=== PATIENT | male | born 1980 | race Caucasian/White ===

== ENCOUNTER 2019-11-07 13:01 | Inpatient (IN) | payer BC, OTHER ==
[2019-11-07 13:05] VITALS: BMI 28.7
--- NOTE | 2019-11-07 13:21 | PDOC ---
History of Present Illness - General Chief Complaint: Pain Stated Complaint: RIGHT SIDE ABDOMINAL PAIN Time Seen by Provider: 11/07/19 13:21 History Source: Patient Exam Limitations: No Limitations - History of Present Illness Initial Comments: 11/07/19 13:21 Jason Hong is an otherwise healthy 38M presenting with RLQ pain. Patient has no significant PMH or PSH. Reports last night drank 4x rum and coke, ate some rice and beef with his family who are asymptomatic, went to bed at 1AM in NAD. No recent trauma. Woke up several times throughout the night with acute onset 10/10 RLQ pain, nauseated without vomiting, no radiating pain, pain worse with walking and extending right leg. Never had pain like this before. No fevers, no urinary symptoms, no chest pain, no PAVON, no dizziness, no SOB. Last BM today and normal. Reported allergy to Bactrim with unknown reaction. Denies drug/tobacco use. 11/07/19 16:58 Labs notable for: - WBC 11.7, WNL - CMP WNL - lipase WNL - CP WNL - UA +ketones otherwise no UTI CTAP done, pending read. Past History - Medical History Allergies/Adverse Reactions: Allergies Allergy/AdvReac Type Severity Reaction Status Date / Time sulfamethoxazole Allergy Intermediate Rash Verified 11/07/19 14:11 [From Bactrim] trimethoprim [From Bactrim] Allergy Intermediate Rash Verified 11/07/19 14:11 Home Medications: Ambulatory Orders No Home Medications 0 dose .ROUTE UTDICT 08/01/13 - Immunization History Td Vaccination: Yes - Psycho-Social/Smoking History Smoking Status: No Smoking History: Never smoked Have you smoked in the past 12 months: No Number of Cigarettes Smoked Daily: 0 Information on smoking cessation initiated: No - Substance Abuse Hx (Audit-C & DAST Scrn) How often the patient has a drink containing alcohol: Monthly or less Score: In Men: 4 or > Positive; In Women: 3 or > Positive: 1 Screen Result (Pos requires Nsg. Audit-10AR): Negative In the last yr the pt used illegal drug/Rx for NonMed reason: No Score: Yes response is considered Positive: 0 Screen Result (Positive result requires Nsg. DAST-10): Negative Review of Systems - Review of Systems Able to Perform ROS?: Yes Constitutional: No: Symptoms Reported HEENTM: No: Symptoms Reported Respiratory: No: Symptoms reported Cardiac (ROS): No: Symptoms Reported ABD/GI: Yes: Nausea, Abdominal cramping. No: Constipated, Diarrhea, Poor Appetite, Poor Fluid Intake, Vomiting : No: Symptoms Reported Musculoskeletal: No: Symptoms Reported Integumentary: No: Symptoms Reported Neurological: No: Symptoms reported Endocrine: No: Symptoms Reported Hematologic/Lymphatic: No: Symptoms Reported All Other Systems: Reviewed and Negative *Physical Exam - Vital Signs Last Vital Signs Temp Pulse Resp BP Pulse Ox 98.2 F 82 18 124/67 99 11/07/19 13:03 11/07/19 13:03 11/07/19 13:03 11/07/19 13:03 11/07/19 13:03 - Physical Exam General Appearance: Yes: Nourished, Appropriately Dressed, Other (resting supine in bed in NAD). No: Apparent Distress HEENT: positive: EOMI, ADRIANO, Normal Voice, Symmetrical, Pharynx Normal. negative: Scleral Icterus (R), Scleral Icterus (L), Pharyngeal Erythema, T onsillar Exudate, Tonsillar Erythema Neck: positive: Trachea midline, Normal Thyroid, Supple. negative: Tender, Rigid, Lymphadenopathy (R), Lymphadenopathy (L), Tender lateral, Tender midline Respiratory/Chest: positive: Lungs Clear, Normal Breath Sounds. negative: Chest Tender, Respiratory Distress, Accessory Muscle Use, Crackles, Rales, Rhonchi, Stridor, Wheezing Cardiovascular: positive: Regular Rhythm, Regular Rate. negative: Murmur Gastrointestinal/Abdominal: positive: Normal Bowel Sounds, Tender (RLQ, negative Guerra's, no flank pain, +Psoas sign, -Rosvings sign), Flat, Soft. negative: Organomegaly, Guarding, Rebound Musculoskeletal: positive: Normal Inspection. negative: CVA Tenderness, Decreased Range of Motion, Vertebral Tenderness Extremity: positive: Normal Capillary Refill, Normal Inspection, Normal Range of Motion, Pelvis Stable. negative: Tender, Pedal Edema, Swelling, Calf Tenderness Integumentary: positive: Normal Color, Dry, Warm Neurologic: positive: Fully Oriented, Alert, Normal Mood/Affect, Normal Response ED Treatment Course - LABORATORY CBC & Chemistry Diagram: 11/07/19 01:47 11/07/19 01:47 Medical Decision Making - Medical Decision Making 11/07/19 13:21 Patient presents with acute onset RLQ pain without vomiting or fevers, VSS, in NAD. Presentation consistent with pancreatitis vs. colitis, last BM this AM and normal, no other PSH. Less likely urinary or GB pathology. Getting pre-op labs, board eval infection and electrolyte abnormalities, ECG. CTAP with IV contrast for eval appendicitis after labs return. [facility] for pain control. ECG NSR with HR 74, QTc 432, no MARLEEN/D or TWI. Labs notable for: - WBC 11.7, afebrile - CMP WNL - UA trace ketones but no evidence of UTI 11/07/19 17:19 CTAP: Dilatation of the appendix with moderate adjacent fat stranding and appendicolith, consistent with appendicitis. No evidence of associated abscess or perforation. Moderate prostatomegaly. Consulting surgery and will admit for acute appendicitis. 11/07/19 18:16 Patient now reports feeling warm with 10/10 intermittent pain, now 7/10 with palpation. Giving morphine for pain and getting covid-[address] Anderson office, pending callback. 11/07/19 18:44 Dr. Anderson recommends OR now for appendectomy tonight, requests one dose of cefoxitin prior to OR. Getting rapid covid-19 testing. 11/07/19 18:[address] Randy East for admission. 11/07/19 19:05 Dr. East unavailable for admission, requests [facility] admission. 11/07/19 19:57 Discussed case with night admitting team, will admit to Med/Surg for further OR evaluation tonight. Discharge - Discharge Information Problems reviewed: Yes Clinical Impression/Diagnosis: Abdominal pain Qualifiers: Abdominal location: right lower quadrant Qualified Code(s): R10.31 - Right lower quadrant pain Acute appendicitis Qualifiers: Acute appendicitis type: unspecified acute appendicitis type Qualified Code(s): K35.80 - Unspecified acute appendicitis Condition: Stable - Admission Yes - Follow up/Referral Referrals: Randy East MD [Primary Care Provider] - - Patient Discharge Instructions - Post Discharge Activity
[2019-11-07 13:58] LABS: BASO % 0.4 % (0-2.0); EOS % 0.3 % (0-4.5); HEMATOCRIT 42.9 % (35.4-49); HEMOGLOBIN 14.7 GM/dL (11.7-16.9); LYMPH % 6.7 % (8-40); MCH 29.5 pg (25.7-33.7); MCHC 34.2 g/dl (32.0-35.9); MEAN CELL VOLUME 86.2 fl (80-96); MEAN PLT VOLUME 8.3 fl (7.5-11.1); MONO % 5.8 % (3.8-10.2); NEUT % 86.8 % (42.8-82.8); PLATELET COUNT 210 K/MM3 (134-434); RBC 4.97 M/mm3 (4.00-5.60); RDW 12.8 % (11.9-15.9); WHITE BLOOD COUNT 11.7 K/mm3 (4.0-10.0)
[2019-11-07 14:05] LABS: PROTHROMBIN TIME (PATIENT) 11.8 SEC (9.7-13.0)
[2019-11-07 14:07] LABS: ACTIVATED PTT 31.1 SECONDS (25.2-36.5)
[2019-11-07 14:17] LABS: URINE APPEARANCE CLEAR; URINE BILIRUBIN NEGATIVE (NEGATIVE); URINE COLOR YELLOW; URINE GLUCOSE (UA) NEGATIVE (NEGATIVE); URINE KETONE TRACE (NEGATIVE); URINE LEUK ESTERASE NEGATIVE (NEGATIVE); URINE NITRITE NEGATIVE (NEGATIVE); URINE PROTEIN NEGATIVE (NEGATIVE); URINE UROBILINOGEN 0.2 mg/dL (0.2-1.0)
[2019-11-07] MEDS ORDERED: ACETAMINOPHEN 1000 MG/100 ML VIAL (NON FORMULARY) IVPB ONE ×2 (14:18→19:26)
[2019-11-07] MEDS ORDERED: ACETAMINOPHEN INJECTION 100 ML IVPB ONE ×2 (14:35→19:25)
[2019-11-07 14:38] LABS: ALK PHOS 81 U/L (45-117); ANION GAP 7 MMOL/L (8-16); BILIRUBIN,TOTAL 0.5 mg/dL (0.2-1); BLOOD UREA NITROGEN 20.4 mg/dL (7-18); CALCIUM 9.1 mg/dL (8.5-10.1); CHLORIDE 105 mmol/L (98-107); CO2 26 mmol/L (21-32); CREATININE 1.2 mg/dL (0.55-1.3); GLUCOSE,RANDOM 98 mg/dL (74-106); POTASSIUM 4.1 mmol/L (3.5-5.1); SGOT/AST 17 U/L (15-37); SGPT/ALT 27 U/L (13-61); SODIUM 138 mmol/L (136-145); TOT PROT 7.4 g/dl (6.4-8.2)
--- NOTE | 2019-11-07 18:10 | PDOC ---
Documentation entered by Millie Yates SCRIBE, acting as scribe for Adebayo Simmons MD. Adebayo Simmons MD: This documentation has been prepared by the Milan daniel Lincy, SCRIBE, under my direction and personally reviewed by me in its entirety. I confirm that the documentation accurately reflects all work, treatment, procedures, and medical decision making performed by me. Attending Attestation - Resident Resident Name: MelomartineSteve - ED Attending Attestation I have performed the following: I have examined & evaluated the patient, The case was reviewed & discussed with the resident, I agree w/resident's findings & plan, Exceptions are as noted - HPI HPI: 11/07/19 19:05 38 years old right lower common pain since 1 AM. Has not eaten since last night. Pain is moderate to severe persistent constant no exacerbating or alleviating factors. - Physicial Exam PE: 11/07/19 18:10 Vitals: Triage Vital signs reviewed General Appearance: No acute distress, well nourished well developed, Head: Atraumatic, Cardiac: Regular rate and rhythym, no murmurs, no rubs, no gallops, Lungs: Clear to auscultation bilateral, good air movement bilaterally, Abdomen: Soft, non distended, normal bowel sounds, right lower quadrant tenderness palpation no rebound no guarding Genitourinary:No testicular pain Extremities: Full range of motion to all extremities, no cyanosis, clubbing, or edema Skin: Warm and dry, no rashes or lesions, no rash, no petechiae Psych: Normal mood, normal affect 11/07/19 18:11 - Medical Decision Making 11/07/19 18:10 38 years old no significant past medical history presents with right lower quadrant pain CT evidence of acute appendicitis Surgery consulted We will start patient on antibiotics and admit for further management. Discharge - Discharge Information Problems reviewed: Yes Clinical Impression/Diagnosis: Abdominal pain Qualifiers: Abdominal location: right lower quadrant Qualified Code(s): R10.31 - Right lower quadrant pain Condition: Stable - Admission No - Follow up/Referral Referrals: Randy East MD [Primary Care Provider] - - Patient Discharge Instructions - Post Discharge Activity
[2019-11-07] MEDS ORDERED: morphine CARPU-JECT 4 MG/1 ML DISP.SYRIN IVPUSH ONE (18:16)
[2019-11-07] MEDS ORDERED: morphine SULFATE 4 MG/ML VIAL ONE (18:17)
[2019-11-07] MEDS ORDERED: CEFOXITIN SODIUM 1 GM in DEXTROSE 5%-WATER - 100 ML IVPB ONE (18:41)
--- NOTE | 2019-11-07 19:30 | PN ---
Teaching Attending Note Name of Resident: Daren Ballesteros ATTENDING PHYSICIAN STATEMENT I saw and evaluated the patient. I reviewed the resident's note and discussed the case with the resident. I agree with the resident's findings and plan as documented. 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 Reports last night drank 4x rum and coke, ate some rice and beef with his family who are asymptomatic, went to bed at 1 am in NAD. No recent trauma. Woke up several times throughout the night with acute onset 10/10 RLQ pain. There was associated nausea without vomiting. Pain is nonradiating pain, worse with walking and extending right leg. Never had pain li ke this before. Last bowel movement today and was normal. Patient denies chest pain, shortness of breath, headache, palpitations, dizziness, fever, chills, diarrhea, constipation, dysuria, frequency, urgency, melena, hematochezia or hematuria. Denies alcohol, tobacco or illicit drug use. No sick contacts or recent travels. Family history is unremarkable. OBJECTIVE: Alert Vital Signs Period Temp Pulse Resp BP Sys/Velasquez Pulse Ox Last 24 Hr 98.0 F-100.9 F 82-85 18-19 124-130/67-69 99-100 HEENT: No Jaundice, eye redness or discharge, PERRLA, EOMI. Normocephalic, atraumatic. External ears are normal and hearing is grossly intact. No nasal discharge. Neck: Supple, nontender. No palpable adenopathy or thyromegaly. No JVD Chest: Good effort. Clear to auscultation and percussion. Heart: Regular. No S3, rub or murmur Abdomen: Not distended, soft, RLQ tenderness and no HSM. No rebound or guarding. Normal bowel sounds. Ext: Peripheral pulses intact. No leg edema. Skin: Warm and dry. No petechiae, rash or ecchymosis. Neuro: Alert. Oriented x3. CN 2-12 grossly intact. Sensation grossly intact in all four extremities and DTR are symmetric. Psych: Appropriate mood and affect. Good insight. Home Medications Medication Instructions Recorded No Home Medications 0 dose .ROUTE UTDICT 08/01/13 Abnormal Lab Results 11/07/19 11/07/1911/06/20 01:47 01:47 13:41 WBC 11.7 H Absolute Neuts (auto) 10.2 H Neutrophils % 86.8 H Lymphocytes % 6.7 L Anion Gap 7 L BUN 20.4 H Urine Ketones Trace H Current Medications Generic Name Dose Route Start Last Admin Trade Name Freq PRN Reason Stop Dose Admin Enoxaparin Sodium 40 mg 11/08/19 10:00 Lovenox - SQ DAILY MERLE Fentanyl 50 mcg 11/07/19 21:52 Sublimaze Injection - IVPUSH [id number] PRN PAIN-PACU ORDER X 4 DOSES ONLY Cefoxitin Sodium 1 gm/ 100 mls @ 200 mls/hr 11/07/19 23:00 Dextrose IVPB 11/07/19 23:29 ONCE ONE Lactated Ringer's 1,000 ml in 1,000 mls @ 75 mls/hr 11/07/19 22:15 Lactated Ringers Solution IV ASDIR MERLE Ondansetron HCl 4 mg 11/07/19 21:52 Zofran Injection IVPUSH Q6H PRN NAUSEA AND/OR VOMITING Oxycodone/Acetaminophen 1 combo 11/07/19 21:50 Percocet 5/325 - PO ONCE PRN PAIN LEVEL 6-10 ASSESSMENT AND PLAN: 1. Appendicitis - CT scan of abdomen/pelvis with IV contrast shows evidence of appendicitis without abscess or perforation. ER staff prescribed Tylenol, IV Ce foxitin and IV Morphine for the patient. Patient being evaluated by Surgery. Will keep him NPO and treat with IV D5NS. EKG shows NSR at 74/minute and QTc 432 with no significant acute ischemic ST-T wave changes. Initial troponin is negative. Viral testing for COVID-19 ordered and patient placed on airborne, droplet and contact isolation. 2. DVT prophylaxis - Lovenox 40 mg SQ q 24 hours. 3. Advance directives - Full code
--- NOTE | 2019-11-07 19:58 | CONSULT ---
Consult Consult Specialty:: Surgery Reason for Consultation:: acute appendicitis - History of Present Illness Chief Complaint: RLQ abdominal pain - History Source History Provided By: Patient Limitations to Obtaining History: No Limitations - Alcohol/Substance Use Hx Alcohol Use: No - Smoking History Smoking history: Never smoked Have you smoked in the past 12 months: No Aproximately how many cigarettes per day: 0 Home Medications - Allergies Allergies/Adverse Reactions: Allergies Allergy/AdvReac Type Severity Reaction Status Date / Time sulfamethoxazole Allergy Intermediate Rash Verified 11/07/19 14:11 [From Bactrim] trimethoprim [From Bactrim] Allergy Intermediate Rash Verified 11/07/19 14:11 - Home Medications Home Medications: Ambulatory Orders No Home Medications 0 dose .ROUTE UTDICT 08/01/13 Review of Systems - Review of Systems Eyes: reports: No Symptoms HENT: reports: No Symptoms Neck: reports: No Symptoms Cardiovascular: reports: No Symptoms Respiratory: reports: No Symptoms Gastrointestinal: reports: Abdominal Pain, Nausea Genitourinary: reports: No Symptoms Integumentary: reports: No Symptoms Neurological: reports: No Symptoms Endocrine: reports: No Symptoms Psychiatric: reports: No Symptoms Pain Intensity: 10 Physical Exam Vital Signs: Vital Signs Temperature 100.9 F H 11/07/19 18:59 Pulse Rate 85 11/07/19 17:41 Respiratory Rate 19 11/07/19 17:41 Blood Pressure 130/68 11/07/19 17:41 O2 Sat by Pulse Oximetry (%) 100 11/07/19 17:41 Constitutional: Yes: Well Nourished, Anxious HENT: Yes: Normocephalic Neck: Yes: Supple Cardiovascular: Yes: Regular Rate and Rhythm Respiratory: Yes: CTA Bilaterally Gastrointestinal: Yes: Soft, Tenderness (RLQ) Labs: CBC, BMP 11/07/19 01:47 11/07/19 01:47 Imaging - Results Cat Scan: Report Reviewed (acute appendicitis with appendicolith), Image Reviewed Problem List - Problems (1) Acute appendicitis Assessment/Plan: NPO, IVF, IV Abx Laparoscopic appendectomy, possible open Code(s): K35.80 - UNSPECIFIED ACUTE APPENDICITIS
[2019-11-07] MEDS ORDERED: fentaNYL CITRATE 250 MCG/5 ML VIAL ONE (20:25)
[2019-11-07] MEDS ORDERED: MIDAZOLAM HCL 2 MG/2 ML SINGLE DOSE VIAL ONE ×2 (20:25)
[2019-11-07] MEDS ORDERED: PROPOFOL 20 ML ONE (20:25)
[2019-11-07] MEDS ORDERED: SUCCINYLCHOLINE CHLORIDE 200 MG/10 ML SYRINGE ONE (20:25)
[2019-11-07] MEDS ORDERED: ROCURONIUM BROMIDE 50 MG/5 ML SYRINGE ONE (20:25)
[2019-11-07] MEDS ORDERED: GLYCOPYRROLATE 0.2 MG/1 ML VIAL ONE (20:57)
[2019-11-07] MEDS ORDERED: NEOSTIGMINE METHYLSULFATE 0.5 MG/ML - 10 ML MDV ONE (20:57)
[2019-11-07] MEDS ORDERED: DEXAMETHASONE SOD PHOSPHATE 4 MG/1 ML VIAL ONE (20:57)
[2019-11-07] MEDS ORDERED: KETOROLAC TROMETHAMINE 30 MG/1 ML VIAL ONE (21:20)
[2019-11-07] MEDS ORDERED: BUPIVACAINE HCL/PF 0.5% (5MG/ML) 10 ML VIAL IJ ONE (21:39)
--- NOTE | 2019-11-07 21:42 | HP ---
CHIEF COMPLAINT: RLQ pain PCP: Randy son HISTORY OF PRESENT ILLNESS: 38 M with no significant PMH, presents with 1 D of RLQ pain. Pain began around 3.00am, woke him up from sleep. Sudden onset, sharp, non radiating, episodic, 10/10 at worse, worse with walking/movement of legs, better with pain meds recei sheldon in ER and with laying still. Associated with few episodes of nausea vomiting NBNB. No prior episodes, No hx of appendicitis. Family Hx significant for mother DM and HTN. Denies any fever, chills, chest pain, SOB, diarrhea, constipation, dysuria, hematuria. In ER patient recieved: Tylenol, IV Cefoxitin and IV Morphine ER course was notable for: (1)CTAP: Dilatation of the appendix with moderate adjacent fat stranding and appendicolith, consistent with appendicitis. No evidence of associated abscess or perforation. Moderate prostatomegaly (2)WBC 11.7, Tmax 100.9 (3) Laparoscopic appendectomy, possible open, Dr.Go nany Recent Travel: denies PAST MEDICAL HISTORY: none PAST SURGICAL HISTORY: none Social History: Smoking: denies Alcohol: socially, 2-3x week, 4-5 glasses, hard liquor Drugs: denies Allergies sulfamethoxazole [From Bactrim] Allergy (Intermediate, Verified 11/07/19 14:11) Rash trimethoprim [From Bactrim] Allergy (Intermediate, Verified 11/07/19 14:11) Rash HOME MEDICATIONS: Home Medications Medication Instructions Recorded No Home Medications 0 dose .ROUTE UTDICT 08/01/13 REVIEW OF SYSTEMS CONSTITUTIONAL: Absent: fever, chills, diaphoresis, generalized weakness, malaise, loss of appetite, weight change HEENT: Absent: rhinorrhea, nasal congestion, throat pain, throat swelling, difficulty swallowing CARDIOVASCULAR: Absent: chest pain, syncope, palpitations, irregular heart rate, lightheadedness, peripheral edema RESPIRATORY: Absent: cough, shortness of breath, dyspnea with exertion, orthopnea, wheezing, stridor, hemoptysis GASTROINTESTINAL: Present: nausea, vomiting, Absent: abdominal pain, abdominal distension, diarrhea, constipation, melena, hematochezia GENITOURINARY: Absent: dysuria, frequency, urgency, hesitancy, hematuria, flank pain, genital pain MUSCULOSKELETAL: Absent: myalgia, arthralgia, joint swelling, back pain, neck pain SKIN: Absent: rash, itching, pallor NEUROLOGIC: Absent: headache, focal weakness or paresthesias, dizziness, unsteady gait, seizure, mental status changes, bladder or bowel incontinence PHYSICAL EXAMINATION Vital Signs - 24 hr 11/07/19 11/07/19 11/07/19 13:03 15:27 17:41 Temperature 98.2 F 98.5 F 98.0 F Pulse Rate 82 Pulse Rate [ 85 85 Apical] Respiratory 18 19 19 Rate Blood Pressure 124/67 Blood Pressure 130/69 130/68 [Right Arm] O2 Sat by Pulse 99 100 100 Oximetry (%) 11/07/19 18:59 Temperature 100.9 F H Pulse Rate Pulse Rate [ Apical] Respiratory Rate Blood Pressure Blood Pressure [Right Arm] O2 Sat by Pulse Oximetry (%) GENERAL: Awake, alert, and fully oriented, in no acute distress. Was not able complete the Physical exam, Patient was taken to the OR during the interview Laboratory Results - last 24 hr 11/07/19 11/07/19 11/07/19 01:47 01:47 01:47 WBC 11.7 H RBC 4.97 Hgb 14.7 Hct 42.9 MCV 86.2 MCH 29.5 MCHC 34.2 RDW 12.8 Plt Count 210 MPV 8.3 Absolute Neuts (auto) 10.2 H Neutrophils % 86.8 H Lymphocytes % 6.7 L Monocytes % 5.8 Eosinophils % 0.3 Basophils % 0.4 Nucleated RBC % 0 PT with INR 11.80 INR 1.00 PTT (Actin FS) 31.1 Sodium 138 Potassium 4.1 Chloride 105 Carbon Dioxide 26 Anion Gap 7 L BUN 20.4 H Creatinine 1.2 Est GFR (CKD-EPI)AfAm 89.00 Est GFR (CKD-EPI)NonAf 76.79 Random Glucose 98 Calcium 9.1 Total Bilirubin 0.5 AST 17 ALT 27 Alkaline Phosphatase 81 Creatine Kinase 130 Troponin I < 0.02 Total Protein 7.4 Albumin 4.0 Lipase Urine Color Urine Appearance Urine pH Ur Specific Olin Urine Protein Urine Glucose (UA) Urine Ketones Urine Blood Urine Nitrite Urine Bilirubin Urine Urobilinogen Ur Leukocyte Esterase SARS-CoV-2 (PCR) Blood Type Antibody Screen 11/07/19 11/07/19 11/07/19 01:47 01:47 13:35 WBC RBC Hgb Hct MCV MCH MCHC RDW Plt Count MPV Absolute Neuts (auto) Neutrophils % Lymphocytes % Monocytes % Eosinophils % Basophils % Nucleated RBC % PT with INR INR PTT (Actin FS) Sodium Potassium Chloride Carbon Dioxide Anion Gap BUN Creatinine Est GFR (CKD-EPI)AfAm Est GFR (CKD-EPI)NonAf Random Glucose Calcium Total Bilirubin AST ALT Alkaline Phosphatase Creatine Kinase Troponin I Total Protein Albumin Lipase 88 Urine Color Urine Appearance Urine pH Ur Specific Olin Urine Protein Urine Glucose (UA) Urine Ketones Urine Blood Urine Nitrite Urine Bilirubin Urine Urobilinogen Ur Leukocyte Esterase SARS-CoV-2 (PCR) Blood Type O NEGATIVE O NEGATIVE Antibody Screen Negative Negative 11/07/19 11/07/19 13:41 18:14 WBC RBC Hgb Hct MCV MCH MCHC RDW Plt Count MPV Absolute Neuts (auto) Neutrophils % Lymphocytes % Monocytes % Eosinophils % Basophils % Nucleated RBC % PT with INR INR PTT (Actin FS) Sodium Potassium Chloride Carbon Dioxide Anion Gap BUN Creatinine Est GFR (CKD-EPI)AfAm Est GFR (CKD-EPI)NonAf Random Glucose Calcium Total Bilirubin AST ALT Alkaline Phosphatase Creatine Kinase Troponin I Total Protein Albumin Lipase Urine Color Yellow Urine Appearance Clear Urine pH 5.0 Ur Specific Olin 1.021 Urine Protein Negative Urine Glucose (UA) Negative Urine Ketones Trace H Urine Blood Negative Urine Nitrite Negative Urine Bilirubin Negative Urine Urobilinogen 0.2 Ur Leukocyte Esterase Negative SARS-CoV-2 (PCR) Negative Blood Type Antibody Screen ASSESSMENT/PLAN: 38 M with no significant PMH, presents with 1 D of RLQ pain, CTAP consistent with appendicitis, febrile tmax 100.9 with leukocytosis 11.7, admitted for treatment of Appendicitis #Appendicitis -CTAP: Dilatation of the appendix with moderate adjacent fat stranding and appendicolith, consistent with appendicitis. No evidence of associated abscess or perforation. Moderate prostatomegaly - febrile + leukocytosis - Surgery consulted, Dr. Anderson OR nany, Laparoscopic appendectomy, possible open Pain management and Abx, per surg - will f/u s/p surg, morning labs DVT ppx - Lovenox 40 mg SQ FEN - LR @ 75mls/hr - will continue to monitor electrolytes - NPO Dispo - Will continue to monitor in [place] s/p Surg. Family Medical History Family History: As Documented Visit type - Emergency Visit Emergency Visit: Yes ED Registration Date: 11/07/19 Care time: The patient presented to the Emergency Department on the above date and was hospitalized for further evaluation of their emergent condition. - New Patient This patient is new to me today: No - Critical Care Critical Care patient: No ATTENDING PHYSICIAN STATEMENT I saw and evaluated the patient. I reviewed the resident's note and discussed the case with the resident. I agree with the resident's findings and plan as documented. SUBJECTIVE: OBJECTIVE: ASSESSMENT AND PLAN:
[2019-11-07] MEDS ORDERED: DEXTROSE 5%-WATER - 1,000 ML IV SCH ×2 (21:45→22:08)
[2019-11-07] MEDS ORDERED: ONDANSETRON 4 MG/2 ML VIAL IVPUSH PRN (21:52)
--- NOTE | 2019-11-07 21:57 | OP ---
Operative Note - Note: Operative Date: 11/07/19 Pre-Operative Diagnosis: Acute appendicitis Operation: Laparoscopic appendectomy Findings: suppurative appendicitis Post-Operative Diagnosis: Same as Pre-op Surgeon: Zhao Anderson Anesthesia: General Specimens Removed: appendix Estimated Blood Loss (mls): 15 Operative Report Dictated: Yes
[2019-11-07] MEDS ORDERED: LACTATED RINGERS SOLUTION 1,000 ML/1,000 ML INFUS.BAG IV SCH (22:15)
[2019-11-07] MEDS ORDERED: CEFOXITIN SODIUM 1 GM in DEXTROSE 5%-WATER 100 ML IVPB ONE ×2 (23:00→23:45)
[2019-11-07] MEDS ORDERED: cefOXitin SODIUM 1 GM/10 ML PUSH (RESTRICTED TO ID) IVPUSH ONE (23:00)
[2019-11-07] MEDS ORDERED: MORPHINE SULFATE 2 MG/ML VIAL IVPUSH PRN (23:58)
[2019-11-08] MEDS ORDERED: oxyCODONE HCL 5 MG TABLET PO PRN (05:30)
[2019-11-08] MEDS ORDERED: ACETAMINOPHEN 325 MG TABLET (FP) PO PRN (05:30)
[2019-11-08 07:44] LABS: BASO % 0.1 % (0-2.0); HEMATOCRIT 39.5 % (35.4-49); HEMOGLOBIN 13.3 GM/dL (11.7-16.9); MCH 29.2 pg (25.7-33.7); MCHC 33.7 g/dl (32.0-35.9); MEAN CELL VOLUME 86.7 fl (80-96); MEAN PLT VOLUME 8.5 fl (7.5-11.1); MONO % 5.5 % (3.8-10.2); NEUT % 87.4 % (42.8-82.8); PLATELET COUNT 222 K/MM3 (134-434); RBC 4.55 M/mm3 (4.00-5.60); RDW 12.8 % (11.9-15.9); WHITE BLOOD COUNT 10.7 K/mm3 (4.0-10.0)
[2019-11-08 08:07] LABS: ALBUMIN 3.2 g/dl (3.4-5.0); BILIRUBIN,TOTAL 0.7 mg/dL (0.2-1); BLOOD UREA NITROGEN 17.6 mg/dL (7-18); CALCIUM 8.8 mg/dL (8.5-10.1); CREATININE 1.2 mg/dL (0.55-1.3); MAGNESIUM 2.3 mg/dL (1.8-2.4); PHOSPHOROUS 4.7 mg/dL (2.5-4.9); POTASSIUM 4.4 mmol/L (3.5-5.1); TOT PROT 6.7 g/dl (6.4-8.2)
[2019-11-08] MEDS ORDERED: ENOXAPARIN NA (PORCINE) 40 MG/0.4 ML DISP.SYRIN SQ SCH ×2 (10:00)
[2019-11-08 10:26] VITALS: BP 93/56; PULSE 59; TEMP 97.4
--- NOTE | 2019-11-08 12:32 | DS ---
Physical Exam: SUBJECTIVE: Patient seen and examined Patient is comfortable with NAD OBJECTIVE: Vital Signs Temperature 97.4 F L 11/08/19 10:00 Pulse Rate 59 L 11/08/19 10:00 Respiratory Rate 20 11/08/19 10:00 Blood Pressure 93/56 L 11/08/19 10:00 O2 Sat by Pulse Oximetry (%) 98 11/08/19 10:00 PHYSICAL EXAM GENERAL: The patient is awake, alert, and fully oriented, in no acute distress. HEAD: Normal with no signs of trauma. EYES: PERRL, extraocular movements intact, sclera anicteric, conjunctiva clear. ENT: Ears normal, oropharynx clear without exudates, moist mucous membranes. NECK: Trachea midline, full range of motion, supple. LUNGS: Breath sounds equal, clear to auscultation bilaterally, no wheezes, no crackles, no accessory muscle use. HEART: RRR, S1, S2 +, rub or gallop. ABDOMEN: Soft, NT,ND, s/p Lap malini. +BS EXTREMITIES: 2+ pulses, warm, well-perfused, no edema. NEUROLOGICAL: Cranial nerves II through XII grossly intact. Normal speech, gait is stable PSYCH: Normal mood, normal affect. SKIN: Warm, dry, normal turgor, no rashes or lesions noted. LABS CBCD WBC 10.7 K/mm3 (4.0-10.0) H 11/08/19 06:40 RBC 4.55 M/mm3 (4.00-5.60) 11/08/19 06:40 Hgb 13.3 GM/dL (11.7-16.9) 11/08/19 06:40 Hct 39.5 % (35.4-49) 11/08/19 06:40 MCV 86.7 fl (80-96) 11/08/19 06:40 MCHC 33.7 g/dl (32.0-35.9) 11/08/19 06:40 RDW 12.8 % (11.9-15.9) 11/08/19 06:40 Plt Count 222 K/MM3 (134-434) 11/08/19 06:40 MPV 8.5 fl (7.5-11.1) 11/08/19 06:40 CMP Sodium 137 mmol/L (136-145) 11/08/19 06:40 Potassium 4.4 mmol/L (3.5-5.1) 11/08/19 06:40 Chloride 103 mmol/L (98-107) 11/08/19 06:40 Carbon Dioxide 28 mmol/L (21-32) 11/08/19 06:40 Anion Gap 6 MMOL/L (8-16) L 11/08/19 06:40 BUN 17.6 mg/dL (7-18) 11/08/19 06:40 Creatinine 1.2 mg/dL (0.55-1.3) 11/08/19 06:40 Random Glucose 113 mg/dL (74-106) H 11/08/19 06:40 Calcium 8.8 mg/dL (8.5-10.1) 11/08/19 06:40 Total Bilirubin 0.7 mg/dL (0.2-1) 11/08/19 06:40 AST 14 U/L (15-37) L 11/08/19 06:40 ALT 21 U/L (13-61) 11/08/19 06:40 Alkaline Phosphatase 70 U/L (45-117) 11/08/19 06:40 Total Protein 6.7 g/dl (6.4-8.2) 11/08/19 06:40 Albumin 3.2 g/dl (3.4-5.0) L 11/08/19 06:40 CARDIAC ENZYMES Creatine Kinase 130 U/L (26-308) 11/07/19 01:47 Troponin I < 0.02 ng/ml (0.00-0.05) 11/07/19 01:47 Current Medications Generic Name Dose Route Start Last Admin Trade Name John PRN Reason Stop Dose Admin Acetaminophen 325 mg 11/08/19 05:30 Tylenol - PO ONCE PRN PAIN 7-10 Enoxaparin Sodium 40 mg 11/08/19 10:00 11/08/19 09:31 Lovenox - SQ Not Given DAILY MERLE Fentanyl 50 mcg 11/07/19 21:52 Sublimaze Injection - IVPUSH [id number] PRN PAIN-PACU ORDER X 4 DOSES ONLY Lactated Ringer's 1,000 ml in 1,000 mls @ 75 mls/hr 11/07/19 22:15 11/07/19 23:55 Lactated Ringers Solution IV 75 mls/hr ASDIR MERLE Administration Ondansetron HCl 4 mg 11/07/19 21:52 Zofran Injection IVPUSH Q6H PRN NAUSEA AND/OR VOMITING Oxycodone HCl 5 mg 11/08/19 05:30 Roxicodone - PO ONCE PRN PAIN 7-10 Home Medications Medication Instructions Recorded RX: No Home Medications 0 dose .ROUTE UTDICT 08/01/13 HOSPITAL COURSE: Date of Admission:11/07/19 Date of Discharge: 11/08/19 # POD#1 s/p lap appy by dr Anderson. tolerating diet, comfortable, as per Dr Anderson , patient elizabeth go home since tolerated diet with F/U visit in a week f/u at office in one week Do not lift more than 5 lbs dc patient home Minutes to complete discharge: 35 Discharge Summary Problems reviewed: Yes Reason For Visit: APPENDICITIS, ABDOMINAL PAIN Current Active Problems Abdominal pain (Acute) Acute appendicitis (Acute) Acute appendicitis (Acute) Condition: Stable - Instructions Diet, Activity, Other Instructions: low fat, light food at least for a week. follow up with Dr. Anderson within a week period. If you develop fever, please call your surgeon and come to the emergency room immediately do not left anything over 5 pounds for at least 6 weeks, or cleared by surgery Take Tylenol 650mg orally every 6hrs as needed. Referrals: Zhao Anderson MD [Staff Physician] - 1 Week Randy East MD [Primary Care Provider] - 1 Week - Home Medications Comprehensive Discharge Medication List: Ambulatory Orders No Home Medications 0 dose .ROUTE UTDICT 08/01/13 This patient is new to me today: Yes Date on this admission: 11/08/19 Emergency Visit: Yes ED Registration Date: 11/07/19 Care time: The patient presented to the Emergency Department on the above date and was hospitalized for further evaluation of their emergent condition. Critical Care patient: No - Discharge Referral Referred to [facility] No
--- NOTE | 2019-11-08 12:58 | PN ---
Progress Note, Physician Chief Complaint: RLQ pain History of Present Illness: s/p laparoscopic appendectomy has mild port site, RLQ, and right shoulder pain tolerating diet - Current Medication List Current Medications: Active Medications Acetaminophen (Tylenol -) 325 mg PO ONCE PRN PRN Reason: PAIN 7-10 Enoxaparin Sodium (Lovenox -) 40 mg SQ DAILY [facility] Last Admin: 11/08/19 09:31 Dose: Not Given Documented by: Fentanyl (Sublimaze Injection -) 50 mcg IVPUSH [id number] PRN PRN Reason: PAIN-PACU ORDER X 4 DOSES ONLY Lactated Ringer's (Lactated Ringers Solution) 1,000 ml in 1,000 mls @ 75 mls/hr IV ASDIR [facility] Last Admin: 11/07/19 23:55 Dose: 75 mls/hr Documented by: Ondansetron HCl (Zofran Injection) 4 mg IVPUSH Q6H PRN PRN Reason: NAUSEA AND/OR VOMITING Oxycodone HCl (Roxicodone -) 5 mg PO ONCE PRN PRN Reason: PAIN 7-10 - Objective Vital Signs: Vital Signs Temperature 97.4 F L 11/08/19 10:00 Pulse Rate 59 L 11/08/19 10:00 Respiratory Rate 20 11/08/19 10:00 Blood Pressure 93/56 L 11/08/19 10:00 O2 Sat by Pulse Oximetry (%) 98 11/08/19 10:00 Constitutional: Yes: No Distress Gastrointestinal: Yes: Soft, Tenderness (mild at RLQ and at port sites) Wound/Incision: Yes: Clean/Dry Labs: CBC, BMP 11/08/19 06:40 11/08/19 06:40 INR, PTT INR 1.00 (0.83-1.09) 11/07/19 01:47 Problem List - Problems (1) Acute appendicitis Assessment/Plan: doing well advce KRISTYN d/c planning f/u at office in one week Code(s): K35.80 - UNSPECIFIED ACUTE APPENDICITIS
--- NOTE | 2019-11-08 16:12 | EKG ---
Test Reason : Blood Pressure : / mmHG Vent. Rate : 074 BPM Atrial Rate : 074 BPM P-R Int : 154 ms QRS Dur : 090 ms QT Int : 390 ms P-R-T Axes : 036 003 -01 degrees QTc Int : 432 ms NORMAL SINUS RHYTHM NORMAL ECG WHEN COMPARED WITH ECG OF 29-NOV-2018 10:55, NO SIGNIFICANT CHANGE WAS FOUND Confirmed by MD Salazar Daniel ([id number]) on 11/08/2019 4:12:41 PM Referred By: Confirmed By:Wesly Salazar MD
--- NOTE | 2019-11-09 07:01 | PN ---
Progress Note (short form) - Note Progress Note: Anesthesia Post Op Note Pt s/p GA for lap appy Pt d/c prior to visit as per chart pt w/o complaints VSS no apparent anesthesia complications Roz BACA
--- NOTE | 2019-11-10 09:45 | OP ---
DATE OF OPERATION: 11/07/2019 PROCEDURE: Laparoscopic appendectomy. PREOPERATIVE DIAGNOSIS: Acute appendicitis. POSTOPERATIVE DIAGNOSIS: Acute suppurative appendicitis. SURGEON: Zhao Anderson MD ANESTHESIA: General endotracheal. FINDINGS & PROCEDURE: This is a 38-year-old male who presents with 1 day history of right lower quadrant pain associated with nausea but no vomiting. On examination patient has localized right lower quadrant tenderness and a CT scan of the abdomen and pelvis revealed an appendicitis with inflamed appendix with appendicolith and stranding at the mesentery. Patient also has a white blood cell count of 11,000. So, patient was advised emergent appendectomy and consent was obtained after discussing the risks, benefits and alternatives of the procedure. Patient was brought to the operating room and placed in the supine position, the left arm tucked to the side. General endotracheal anesthesia was then administered. The abdomen was prepped and draped in the usual sterile fashion. Using 0.5% Marcaine local anesthesia was administered to the proposed incision site. The peritoneal cavity was entered using the Optiview technique verified with a 30-degree scope inserted in a 5-mm optical port. Pneumoperitoneum was established. Patient was then placed in Trendelenburg left side down position. The 5-mm port was inserted in the left lower quadrant and a 12-mm port was inserted at the suprapubic area to the left of midline. The appendix was searched for and the inflammatory adhesions were taken down bluntly using the laparoscopic graspers. An inflamed appendix with fibrinous discharge was noted and noted to be dilated close to the base. Using the [place] dissector a window was created between the base and the mesoappendix and this was followed by insertion of an Endo MICHEAL 45 tri-stapler device and fired to amputate the appendix at the base. Afterwards the inflammatory adhesions of the mesoappendix to the gutter were taken down sharply using the hook resector connected to monopolar cautery. The mesoappendix was completely mobilized and the Endo MICHEAL 45 tri-stapler device was also applied and fired to transect the mesoappendix. A small amount of bleeding at the stump of the mesoappendix was controlled using the hook dissector connected to monopolar cautery. The retrocolic gutter as well as the pelvis was copiously irrigated with sterile normal saline until return was clear. The appendix was placed in an Endobag and extracted via the suprapubic port. The pneumoperitoneum was evacuated and the ports were removed. The wounds were closed with 1 [id number] Polysorb 0 suture for the fascia of the suprapubic port and subcuticular Biosyn 4-0 sutures for the skin. The wound closure was reinforced with Dermabond. The patient was successfully extubated and transferred to the postanesthesia care unit in satisfactory condition. Estimated blood loss was about 15 mL. Wound class clean contaminated. The patient was given a gram of cefoxitin in the emergency department. Anna Marie [id number] MTDD
--- NOTE | 2019-11-14 16:38 | PATH ---
Surgical Pathology Report Patient Name: VI OROSCO [facility]. Rec. #: [id number] /Age/Gender: 1980 (Age: 38) / M Account: [id number] Location: [address] [place] [address] Taken: 11/07/2019 Received: 11/10/2019 Reported: 11/14/2019 Physicians: Zhao Anderson M.D. Specimen(s) Received APPENDIX Clinical History Acute appendicitis Final Diagnosis APPENDIX, LAPAROSCOPIC APPENDECTOMY: NEUROENDOCRINE TUMOR, WELL-DIFFERENTIATED (CARCINOID/G1). NEOPLASM MEASURES 2 MM IN GREATEST MICROSCOPIC DIMENSION. NEOPLASM PRESENT AT APPENDICEAL TIP (DISTAL HALF). TUMOR INVADES THE MUSCULARIS PROPRIA. MITOSIS: <2 MITOSES/2MM2. NO LYMPHOVASCULAR OR PERINEURAL INVASION IDENTIFIED. SURGICAL MARGINS ARE NEGATIVE (PROXIMAL AND RADIAL). MARKED ACUTE APPENDICITIS AND PERIAPPENDICITIS. SEE COMMENT. AJCC STAGING (pTNM, 8TH EDITION):pT1 pNx. Comment: On the appendiceal tip there are few nests and single bland neoplastic cells infiltrating into the muscularis propria. No mitosis is identified (<2 mitosis/2 mm2). Immunohistochemical stains performed and interpreted at [facility] show the tumor is positive for AE1/3, Chromogranin and synaptophysin; while negative for S100. Additional Immunohistochemical stains [place] ([id number]) and interpreted at [facility] show the neoplasm is positive for CD56. Proliferative marker, Ki-67 is <1%. CK7, CK20, and mucin stains are negative. Case seen in intradepartmental review with consensus on diagnosis. Findings discussed with Dr. Anderson, 11/14/19. Positive and negative controls (internal if applicable) show appropriate results. Comments Surgical pathology Case Summary Appendix Neuroendocrine Tumor Procedure _X_ Appendectomy Tumor Site _X_ Distal half of appendix Tumor Size Greatest dimension (centimeters): 2 mm Histologic Type and Grade _X_ G1: Well-differentiated neuroendocrine tumor Mitotic Rate _X_ <2 mitoses/2mm2 Ki-67 Labeling Index _X_ <3% Tumor Extension _X_ Tumor invades the muscularis propria Margins _X_ All margins are uninvolved by tumor Margins examined: Proximal and radial Lymphovascular Invasion _X_ Not identified Perineural Invasion _X_ Not identified Regional Lymph Nodes _X_ No lymph nodes submitted or found Pathologic Stage Classification (pTNM, AJCC 8th Edition) Primary Tumor (pT) _X_ pT1: Tumor 2 cm or less in greatest dimension Regional Lymph Nodes (pN) _X_ pNX: Regional lymph nodes cannot be assessed Additional Pathologic Findings _X__ Acute appendicitis and periappendicitis. Electronically Signed Jessica Martines M.D. Gross Description Received in formalin, labeled "appendix," is an 8 cm. in length proximally dilated vermiform appendix with a stapled margin of resection and moderate attached fat. The serosa is guerra-glynn with focal exudate at the proximal end. Sectioning reveals a focally hemorrhagic lumen. The wall of the appendix averages 0.1 cm. in thickness. Research Interviewer sections are submitted in cassette 1- bisected tip and territory sales representative sections. The remainder of the specimen is entirely submitted as follows: 2-appendiceal margin of resection; 5-5-vsbtspdtk of appendix sequentially submitted from proximal to distal. 11/10/2019 [facility]11/10/2019
== END 2019-11-08 16:13 | disposition home or self-care (01) | DRG 343 ==
LOC: JER 13:01 → J6S 19:17 → JER 23:46
PROVIDERS: ADMIT Internal Medicine; ATTEND Internal Medicine
PROC: 0DTJ4ZZ Resection of Appendix, Percutaneous Endoscopic Approach (ICD-10-PCS; principal; 2019-11-07 20:00)
DX: K35.80 Unspecified acute appendicitis (principal)
CPT/HCPCS: 36415; 74177-TC; 80053; 81003; 82550; 83690; 83735; 84100; 84484; 85025; 85610; 85730; 86850; 86900; 86901; 87086; 88307-TC; 88341-TC; 93005; 93010; 94760; 99285-25; J0131; U0003

== ENCOUNTER 2020-09-20 11:33 | Emergency (ER) | payer OTHER ==
[2020-09-20 11:41] VITALS: BP 101/61; PULSE 83; TEMP 97.9; BMI 29.0
[2020-09-20] MEDS ORDERED: IBUPROFEN 600 MG TABLET (FP) PO ONE ×2 (12:29→12:58)
== END 2020-09-20 13:00 | disposition home or self-care (01) ==
LOC: JER 11:33
DX: S86.012A Strain of left Achilles tendon, initial encounter (principal); W18.40XA Slipping, tripping and stumbling without falling, unspecified, initial encounter; Y93.39 Activity, other involving climbing, rappelling and jumping off
CPT/HCPCS: 73590-TC-LT-FY; 73610-TC-LT-FY; 73630-TC-LT; 99284-25

== ENCOUNTER 2021-11-09 21:46 | Emergency (ER) | payer OTHER, BC ==
[2021-11-09 21:49] VITALS: BP 120/76; PULSE 74; RESP 18; TEMP 98.1; BMI 26.9
== END 2021-11-09 23:19 | disposition home or self-care (01) ==
LOC: JERFT 21:46
DX: S93.491A Sprain of other ligament of right ankle, initial encounter (principal); X50.0XXA Overexertion from strenuous movement or load, initial encounter
CPT/HCPCS: 73610-TC-RT-FY; 99284-25

== ENCOUNTER 2022-04-19 09:15 | Emergency (ER) | payer OTHER, BC ==
[2022-04-19 09:27] VITALS: BP 120/77; PULSE 88; RESP 17; TEMP 97.5; BMI 28.7
[2022-04-19] MEDS ORDERED: KETOROLAC TROMETHAMINE 30 MG/1 ML VIAL IM ONE (10:22)
[2022-04-19] MEDS ORDERED: KETOROLAC TROMETHAMINE 30 MG/1 ML VIAL ONE (10:26)
[2022-04-19 11:17] LABS: BASO % 0.4 % (0-2.0); EOS % 0.7 % (0-4.5); HEMATOCRIT 45.7 % (35.4-49); HEMOGLOBIN 15.6 GM/dL (11.7-16.9); LYMPH % 16.2 % (8-40); MCH 28.7 pg (25.7-33.7); MCHC 34.1 g/dl (32.0-35.9); MEAN CELL VOLUME 84.2 fl (80-96); MEAN PLT VOLUME 8.2 fl (7.5-11.1); MONO % 5.1 % (3.8-10.2); NEUT % 77.6 % (42.8-82.8); PLATELET COUNT 252 10^3/uL (134-434); RBC 5.43 M/mm3 (4.00-5.60); RDW 12.6 % (11.9-15.9); WHITE BLOOD COUNT 10.9 K/mm3 (4.0-10.0)
[2022-04-19 11:40] LABS: CALCIUM 9.2 mg/dL (8.5-10.1)
[2022-04-19 11:42] LABS: ALBUMIN 4.4 g/dl (3.4-5.0); BLOOD UREA NITROGEN 27.8 mg/dL (7-18)
[2022-04-19 11:44] LABS: CREATININE 1.2 mg/dL (0.55-1.3)
[2022-04-19 11:46] LABS: BILIRUBIN,TOTAL 0.6 mg/dL (0.2-1); TOT PROT 8.2 g/dl (6.4-8.2)
== END 2022-04-19 13:40 | disposition home or self-care (01) ==
LOC: JERFT 09:15 → JER 09:15 → JERFT 13:40
DX: M54.2 Cervicalgia (principal); M25.511 Pain in right shoulder; M25.512 Pain in left shoulder; R07.0 Pain in throat; R05.1 Acute cough; T59.811A Toxic effect of smoke, accidental (unintentional), initial encounter
CPT/HCPCS: 36415; 70450-TC; 71046-TC-FY; 72125-TC; 80053; 82375; 85025; 99284-25; 99285-25

== ENCOUNTER 2022-05-18 03:39 | Emergency (ER) | payer OTHER, BC ==
[2022-05-18 03:57] VITALS: BP 126/85; PULSE 99; RESP 18; TEMP 98; BMI 29.4
[2022-05-18] MEDS ORDERED: IBUPROFEN 400 MG TABLET (FP) PO ONE ×2 (04:15→04:16)
== END 2022-05-18 06:47 | disposition home or self-care (01) ==
LOC: JER 03:39
DX: M25.512 Pain in left shoulder (principal); T59.811A Toxic effect of smoke, accidental (unintentional), initial encounter; J70.5 Respiratory conditions due to smoke inhalation; J39.2 Other diseases of pharynx; X58.XXXA Exposure to other specified factors, initial encounter; Y99.0 Civilian activity done for income or pay
CPT/HCPCS: 73030-TC-LT-FY; 93005; 93010; 99284-25

== ENCOUNTER 2023-02-05 11:55 | Emergency (ER) | payer BC, OTHER ==
[2023-02-05 12:09] VITALS: BP 129/74; PULSE 78; RESP 16; TEMP 98.2; BMI 30.1
[2023-02-05 13:34] LABS: BASO % 1.1 % (0-2.0); EOS % 2.2 % (0-4.5); HEMATOCRIT 42.5 % (35.4-49); HEMOGLOBIN 14.5 GM/dL (11.7-16.9); LYMPH % 28.4 % (8-40); MCH 29.2 pg (25.7-33.7); MCHC 34.2 g/dl (32.0-35.9); MEAN CELL VOLUME 85.5 fl (80-96); MEAN PLT VOLUME 7.8 fl (7.5-11.1); NEUT % 62.3 % (42.8-82.8); PLATELET COUNT 248 10^3/uL (134-434); RBC 4.97 M/mm3 (4.00-5.60); RDW 12.2 % (11.9-15.9); WHITE BLOOD COUNT 7.6 K/mm3 (4.0-10.0)
[2023-02-05 13:54] LABS: POTASSIUM 4.3 mmol/L (3.5-5.1)
[2023-02-05 13:56] LABS: CALCIUM 9.4 mg/dL (8.5-10.1)
[2023-02-05 13:57] LABS: ALBUMIN 3.7 g/dl (3.4-5.0)
[2023-02-05 14:01] LABS: BILIRUBIN,TOTAL 0.2 mg/dL (0.2-1); TOT PROT 7.7 g/dl (6.4-8.2)
== END 2023-02-05 15:28 | disposition home or self-care (01) ==
LOC: JERFT 11:55 → JER 11:55 → JERFT 15:28
DX: R59.0 Localized enlarged lymph nodes (principal)
CPT/HCPCS: 36415; 70491-TC; 80053; 85025; 99285-25; Q9967